=== PATIENT | male | born 1935 | race Caucasian/White ===

== ENCOUNTER → 2017-01-29 | Outpatient (REF) | payer MEDICARE, BC ==
[~2017-01-29] MED LIST: /WARF5TA OR; ACET65TA OR; IBUPROPHEN PO; IMMODIUM PO; KEFL500C OR; NASONEX INH; PERC5TAB8 OR
[2017-01-29 13:24] LABS: MEAN CORPUSCULAR HEMOGLOBIN 30.2 pg (27.0-33.0); RED CELL DISTRIBUTION WIDTH 14.4 % (11.5-14.5); WHITE BLOOD COUNT 5.5 K/mm3 (4.0-10.0)
[2017-01-29 13:53] LABS: ALBUMIN 3.8 GM/DL (3.2-5.2); ALBUMIN/GLOBULIN RATIO 1.41 (1.00-1.93); BILIRUBIN,TOTAL 0.6 MG/DL (0.2-1.0); CALCIUM LEVEL 8.3 MG/DL (8.8-10.2); CREATININE FOR GFR 1.24 MG/DL (0.70-1.30); GLOMERULAR FILTRATION RATE 59.9 (>42); POTASSIUM SERUM 4.3 MEQ/L (3.5-5.1); TOTAL PROTEIN 6.5 GM/DL (6.4-8.2)
== END ==
LOC: M SFHCCLAY 07:37
PROVIDERS: ATTEND Family Medicine
DX: Z00.00 Encounter for general adult medical examination without abnormal findings (principal); R53.82 Chronic fatigue, unspecified

== ENCOUNTER → 2017-12-25 | Outpatient (REF) | payer MEDICARE, BC ==
[2017-12-25 11:37] LABS: HEMATOCRIT 45.9 % (42.0-52.0); HEMOGLOBIN 15.3 g/dl (13.5-17.5); MEAN CORPUSCULAR HGB CONC 33.3 g/dl (32.0-36.5); MEAN CORPUSCULAR VOLUME 86.9 fl (80.0-96.0); PLATELET COUNT, AUTOMATED 194 10^3/uL (150-450); RED BLOOD COUNT 5.28 10^6/uL (4.30-6.10); RED CELL DISTRIBUTION WIDTH 13.5 % (11.5-14.5); WHITE BLOOD COUNT 5.3 10^3/uL (4.0-10.0)
[2017-12-25 12:16] LABS: ANION GAP 6 MEQ/L (8-16); AST/SGOT 17 U/L (7-37); BLOOD UREA NITROGEN 24 MG/DL (7-18); CALCIUM LEVEL 8.6 MG/DL (8.8-10.2); CARBON DIOXIDE LEVEL 28 MEQ/L (21-32); CHLORIDE LEVEL 108 MEQ/L (98-107); CREATININE FOR GFR 1.21 MG/DL (0.70-1.30); GLOMERULAR FILTRATION RATE > 60.0 (>35); GLUCOSE, FASTING 94 MG/DL (70-100); POTASSIUM SERUM 4.2 MEQ/L (3.5-5.1); SODIUM LEVEL 142 MEQ/L (136-145)
[2017-12-25 12:17] LABS: ALBUMIN/GLOBULIN RATIO 1.38 (1.00-1.93); ALKALINE PHOSPHATASE 74 U/L (45-117); ALT/SGPT 23 U/L (12-78); BILIRUBIN,TOTAL 0.6 MG/DL (0.2-1.0); TOTAL PROTEIN 6.9 GM/DL (6.4-8.2)
== END ==
LOC: M SFHCCLAY 07:49
DX: K58.0 Irritable bowel syndrome with diarrhea (principal); N52.9 Male erectile dysfunction, unspecified; Z98.890 Other specified postprocedural states; Z79.899 Other long term (current) drug therapy
CPT/HCPCS: 84443

== ENCOUNTER → 2018-05-14 | Outpatient (REF) | payer MEDICARE, BC ==
[2018-05-14 12:06] LABS: APPEARANCE, URINE CLEAR (CLEAR); BACTERIA, URINE AUTO NEGATIVE (NEGATIVE); BILIRUBIN, URINE AUTO NEGATIVE (NEGATIVE); BLOOD, URINE BLOOD NEGATIVE (NEGATIVE); COLOR, URINE YELLOW (YELLOW); GLUCOSE, URINE (UA) AUTO NEGATIVE (NEGATIVE); KETONE, URINE AUTO NEGATIVE (NEGATIVE); LEUKOCYTE ESTERASE, URINE AUTO NEGATIVE (NEGATIVE); MUCUS, URINE SMALL (NEGATIVE); NITRITE, URINE AUTO NEGATIVE (NEGATIVE); PROTEIN, URINE AUTO NEGATIVE (NEGATIVE); RBC, URINE AUTO 1 /HPF (0-3); SQUAMOUS EPITHELIAL CELL UR AU 0 /HPF (0-6); UROBILINOGEN, URINE AUTO 0.2 mg/dL (0.0-2.0); WBC, URINE AUTO 0 /HPF (0-3)
== END ==
LOC: M SMT 11:29
DX: R35.0 Frequency of micturition (principal); N50.89 Other specified disorders of the male genital organs
CPT/HCPCS: 81001

== ENCOUNTER → 2018-07-09 | Outpatient (REF) | payer MEDICARE, BC ==
[2018-07-09 16:41] LABS: BASO % 0.3 % (0.0-1.0); EOS # 0.1 10^3/uL (0.0-0.50); EOS % 0.6 % (0.0-3.0); HEMATOCRIT 45.9 % (42.0-52.0); HEMOGLOBIN 15.6 g/dl (13.5-17.5); IMMATURE GRANULOCYTE % 0.4 % (0-3.0); LYMPH % 9.4 % (24.0-44.0); MEAN CORPUSCULAR HEMOGLOBIN 30.2 pg (27.0-33.0); MEAN CORPUSCULAR VOLUME 88.8 fl (80.0-96.0); MONO # 0.9 10^3/uL (0.0-0.8); MONO % 8.2 % (0.0-5.0); NEUTROPHILS # 8.9 10^3/uL (1.8-7.7); NEUTROPHILS % 81.1 % (36.0-66.0); PLATELET COUNT, AUTOMATED 207 10^3/uL (150-450); RED BLOOD COUNT 5.17 10^6/uL (4.30-6.10); RED CELL DISTRIBUTION WIDTH 12.8 % (11.5-14.5); WHITE BLOOD COUNT 10.9 10^3/uL (4.0-10.0)
[2018-07-09 17:23] LABS: ANION GAP 10 MEQ/L (8-16); BLOOD UREA NITROGEN 25 MG/DL (7-18); CALCIUM LEVEL 8.8 MG/DL (8.8-10.2); CARBON DIOXIDE LEVEL 24 MEQ/L (21-32); CHLORIDE LEVEL 105 MEQ/L (98-107); CREATININE FOR GFR 1.24 MG/DL (0.70-1.30); FREE T4 0.93 NG/DL (0.76-1.46); GLOMERULAR FILTRATION RATE 59.7 (>35); GLUCOSE, FASTING 153 MG/DL (70-100); POTASSIUM SERUM 4.5 MEQ/L (3.5-5.1); SODIUM LEVEL 139 MEQ/L (136-145)
== END ==
LOC: M SFHCCLAY 13:35
DX: R30.0 Dysuria (principal); R79.89 Other specified abnormal findings of blood chemistry; R10.32 Left lower quadrant pain
CPT/HCPCS: 84443

== ENCOUNTER → 2019-01-13 | Outpatient (REF) | payer MEDICARE, BC ==
[~2019-01-13] MED LIST changes: -/WARF5TA OR; +COUM1TAB17 OR
[2019-01-14 11:36] LABS: FREE T4 0.87 NG/DL (0.76-1.46); THYROID STIMULATING HORMONE 3.75 uIU/ML (0.358-3.740)
[2019-01-14 11:37] LABS: FOLATE 11.3 NG/ML (>5.4)
[2019-01-14 11:41] LABS: HEMOGLOBIN A1c 5.8 %
== END ==
LOC: M SFHCCLAY 13:59
PROVIDERS: ATTEND Family Medicine
DX: G62.9 Polyneuropathy, unspecified (principal); R53.82 Chronic fatigue, unspecified
CPT/HCPCS: 82607; 82746; 83036; 84439; 84443; G0463

== ENCOUNTER → 2019-01-17 | Outpatient (CLI) | payer MEDICARE, BC ==
--- NOTE | 2019-01-17 16:29 | REP ---
Scrotal sonography: History: Epididymitis. Scrotal cyst. Comparison study December 19, 2005 showed a small left-sided varicocele and a small right hydrocele. 6 mm epididymal cysts were seen. Today's sonographic findings: High-resolution bilateral scrotal sonography shows no evidence of intratesticular mass lesion on either side. Right testis measures 4.9 x 2.4 x 2.9 cm. Left testicular dimensions are 4.1 x 1.9 x 3.3 cm. There are small bilateral cysts in the head of each epididymis, two on the left, and one on the right. The largest of these on each side measures 6 mm in greatest diameter. There are small bilateral varicoceles. The palpable area pointed out by the patient corresponds to the 6 mm left epididymal head cyst. Doppler flow is normal in both testes. Resistive indices are measured at 0.56 on the right and 0.50 on the left. Impression: Bilateral epididymal cysts. Small bilateral varicoceles. No intratesticular lesion is seen on either side. Normal Doppler flow to both testes. Electronically Signed by Yovani Sena MD 01/17/2019 07:35 P
== END ==
LOC: M RAD 12:42
PROVIDERS: ATTEND Family Medicine
DX: N50.89 Other specified disorders of the male genital organs (principal); N50.3 Cyst of epididymis

== ENCOUNTER → 2019-04-28 | Outpatient (REF) | payer MEDICARE, BC | LOC: M SMT 17:27 | PROVIDERS: ATTEND Urology | DX: R35.0 Frequency of micturition (principal) ==

== ENCOUNTER → 2019-06-09 | Outpatient (REF) | payer MEDICARE, BC ==
[2019-06-09 11:35] LABS: HEMATOCRIT 44.7 % (42.0-52.0); HEMOGLOBIN 14.9 g/dl (13.5-17.5); MEAN CORPUSCULAR HEMOGLOBIN 30.5 pg (27.0-33.0); MEAN CORPUSCULAR HGB CONC 33.3 g/dl (32.0-36.5); MEAN CORPUSCULAR VOLUME 91.6 fl (80.0-96.0); PLATELET COUNT, AUTOMATED 184 10^3/uL (150-450); RED BLOOD COUNT 4.88 10^6/uL (4.30-6.10); WHITE BLOOD COUNT 5.1 10^3/uL (4.0-10.0)
[2019-06-09 12:17] LABS: CALCIUM LEVEL 8.2 MG/DL (8.8-10.2); CREATININE FOR GFR 1.3 MG/DL (0.70-1.30); FREE T4 0.93 NG/DL (0.76-1.46); GLOMERULAR FILTRATION RATE 56.4 (>35); POTASSIUM SERUM 4.3 MEQ/L (3.5-5.1); THYROID STIMULATING HORMONE 3.88 uIU/ML (0.358-3.740)
== END ==
LOC: M SFHCCLAY 09:18
PROVIDERS: ATTEND Family Medicine
DX: K58.0 Irritable bowel syndrome with diarrhea (principal); M19.90 Unspecified osteoarthritis, unspecified site; I34.0 Nonrheumatic mitral (valve) insufficiency; N40.1 Benign prostatic hyperplasia with lower urinary tract symptoms; R79.89 Other specified abnormal findings of blood chemistry; Z79.899 Other long term (current) drug therapy; Z79.01 Long term (current) use of anticoagulants
CPT/HCPCS: 80048; 84439; 84443; 85027; 90682; 99497; G0008; G0463

== ENCOUNTER → 2019-09-27 | Outpatient (REF) | payer MEDICARE, BC ==
[2019-09-27 17:31] LABS: FREE T4 0.87 NG/DL (0.76-1.46); THYROID STIMULATING HORMONE 3.33 uIU/ML (0.358-3.740)
== END ==
LOC: M SFHCCLAY 11:21
PROVIDERS: ATTEND Family Medicine
DX: R79.89 Other specified abnormal findings of blood chemistry (principal); Z79.899 Other long term (current) drug therapy
CPT/HCPCS: 84439; 84443; G0463

== ENCOUNTER → 2020-10-08 | Outpatient (REF) | payer MEDICARE, BC ==
[2020-10-08 12:26] LABS: HEMATOCRIT 48.1 % (42.0-52.0); HEMOGLOBIN 15.8 g/dl (13.5-17.5); MEAN CORPUSCULAR HEMOGLOBIN 30.3 pg (27.0-33.0); MEAN CORPUSCULAR HGB CONC 32.8 g/dl (32.0-36.5); MEAN CORPUSCULAR VOLUME 92.1 fl (80.0-96.0); PLATELET COUNT, AUTOMATED 154 10^3/uL (150-450); RED BLOOD COUNT 5.22 10^6/uL (4.30-6.10); WHITE BLOOD COUNT 5.5 10^3/uL (4.0-10.0)
[2020-10-08 13:12] LABS: ALBUMIN 4.1 GM/DL (3.2-5.2); BILIRUBIN,TOTAL 0.7 MG/DL (0.2-1.0); CHOLESTEROL RISK RATIO 4.318 (<5); CREATININE FOR GFR 1.32 MG/DL (0.70-1.30); GLOMERULAR FILTRATION RATE 55.3 (>35); POTASSIUM SERUM 4.2 MEQ/L (3.5-5.1); TOTAL PROTEIN 6.8 GM/DL (6.4-8.2)
== END ==
LOC: M LABDRAWC 11:34
PROVIDERS: ATTEND Nurse Practitioner Family
DX: I34.0 Nonrheumatic mitral (valve) insufficiency (principal); I05.9 Rheumatic mitral valve disease, unspecified; I49.5 Sick sinus syndrome; N40.0 Benign prostatic hyperplasia without lower urinary tract symptoms; R06.02 Shortness of breath; R07.89 Other chest pain

== ENCOUNTER → 2021-02-13 | Outpatient (REF) | payer MEDICARE, BC ==
[2021-02-13 18:28] LABS: APPEARANCE, URINE CLEAR (CLEAR); BACTERIA, URINE AUTO NEGATIVE (NEGATIVE); BILIRUBIN, URINE AUTO NEGATIVE (NEGATIVE); BLOOD, URINE BLOOD NEGATIVE (NEGATIVE); COLOR, URINE YELLOW (YELLOW); GLUCOSE, URINE (UA) AUTO NEGATIVE (NEGATIVE); KETONE, URINE AUTO NEGATIVE (NEGATIVE); LEUKOCYTE ESTERASE, URINE AUTO NEGATIVE (NEGATIVE); MUCUS, URINE SMALL (NEGATIVE); NITRITE, URINE AUTO NEGATIVE (NEGATIVE); PROTEIN, URINE AUTO NEGATIVE (NEGATIVE); RBC, URINE AUTO 0 /HPF (0-3); SPECIFIC GRAVITY URINE AUTO 1.014 (1.002-1.035); SQUAMOUS EPITHELIAL CELL UR AU 0 /HPF (0-6); UROBILINOGEN, URINE AUTO 0.2 mg/dL (0.0-2.0); WBC, URINE AUTO 0 /HPF (0-3)
== END ==
LOC: M SMT 17:21
PROVIDERS: ATTEND Nurse Practitioner Women's Health
DX: N50.819 Testicular pain, unspecified (principal)
CPT/HCPCS: 81001; 87086; G0463

== ENCOUNTER → 2021-04-09 | Outpatient (CLI) | payer MEDICARE, BC ==
[~2021-04-09] MED LIST changes: +ISOVUE-300 61% 50ML VIAL As Ordered ONE; +LIDOCAINE 1% MDV 20ML VIAL As Ordered ONE; +methylPREDNISolone SUSP 40MG/ML 1ML VIAL (DEPO MEDROL) As Ordered ONE
== END ==
LOC: M RADPRO 10:55
PROVIDERS: ATTEND Physician Assistant
DX: M19.011 Primary osteoarthritis, right shoulder (principal)
CPT/HCPCS: 20610; 77002; J1030; Q9967

== ENCOUNTER → 2021-06-26 | Outpatient (CLI) | payer MEDICARE, BC ==
[~2021-06-26] MED LIST changes: -ISOVUE-300 61% 50ML VIAL As Ordered ONE; -LIDOCAINE 1% MDV 20ML VIAL As Ordered ONE; -methylPREDNISolone SUSP 40MG/ML 1ML VIAL (DEPO MEDROL) As Ordered ONE
--- NOTE | 2021-06-26 10:59 | REP ---
INDICATION: LT KNEE PAIN. COMPARISON: 05/07/2011, 02/23/2008. TECHNIQUE: AP bilateral knees, lateral and sunrise views left knee. FINDINGS: There is no acute fracture or dislocation. Right total knee prosthesis appears to be in good position with no abnormal lucency at the interface with adjacent tulalip bone. Severe medial joint space narrowing is noted on the left with associated subchondral sclerosis and mild spurring. There is mild diffuse spurring of the patella. There is mild patellofemoral joint space narrowing laterally with subchondral sclerosis. There is a mild to moderate suprapatellar joint effusion as well. IMPRESSION: Right total knee prosthesis appears grossly unremarkable on a single AP view. 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 <Electronically signed by Umang Benson > 06/26/21 [id number]
== END ==
LOC: M SOG 08:04
PROVIDERS: ATTEND Orthopaedic Surgery Adult Reconstructive Orthopaedic Surgery
DX: M25.562 Pain in left knee (principal)

== ENCOUNTER → 2021-11-06 | Outpatient (REF) | payer MEDICARE, BC ==
[2021-11-06 18:55] LABS: BILIRUBIN,TOTAL 0.6 MG/DL (0.2-1.0); CHOLESTEROL RISK RATIO 4.342 (<5); CREATININE FOR GFR 1.36 MG/DL (0.70-1.30); GLOMERULAR FILTRATION RATE 53.3 (>35); POTASSIUM SERUM 4.8 MEQ/L (3.5-5.1); TOTAL PROTEIN 6.8 GM/DL (6.4-8.2)
[2021-11-06 19:01] LABS: HEMOGLOBIN 15.1 g/dl (13.5-17.5); MEAN CORPUSCULAR HEMOGLOBIN 29.4 pg (27.0-33.0); MEAN CORPUSCULAR HGB CONC 32.8 g/dl (32.0-36.5); MEAN CORPUSCULAR VOLUME 89.7 fl (80.0-96.0); PLATELET COUNT, AUTOMATED 181 10^3/uL (150-450); RED BLOOD COUNT 5.13 10^6/uL (4.30-6.10); WHITE BLOOD COUNT 6.7 10^3/uL (4.0-10.0)
== END ==
LOC: M SFHCCLAY 10:45
PROVIDERS: ATTEND Family Medicine
DX: J30.2 Other seasonal allergic rhinitis (principal); I05.9 Rheumatic mitral valve disease, unspecified; E78.00 Pure hypercholesterolemia, unspecified

== ENCOUNTER → 2021-11-18 | Outpatient (CLI) | payer MEDICARE, BC | LOC: M RAD 10:50 | PROVIDERS: ATTEND Family Medicine | DX: N50.3 Cyst of epididymis (principal); N43.3 Hydrocele, unspecified ==

== ENCOUNTER → 2022-06-11 | Outpatient (REF) | payer MEDICARE, BC ==
[2022-06-11 12:00] LABS: HEMATOCRIT 45.4 % (42.0-52.0); HEMOGLOBIN 14.7 g/dl (13.5-17.5); MEAN CORPUSCULAR HEMOGLOBIN 29.3 pg (27.0-33.0); MEAN CORPUSCULAR HGB CONC 32.4 g/dl (32.0-36.5); MEAN CORPUSCULAR VOLUME 90.4 fl (80.0-96.0); PLATELET COUNT, AUTOMATED 188 10^3/uL (150-450); RED BLOOD COUNT 5.02 10^6/uL (4.30-6.10); WHITE BLOOD COUNT 6.8 10^3/uL (4.0-10.0)
[2022-06-11 12:49] LABS: CALCIUM LEVEL 8.9 MG/DL (8.8-10.2); CREATININE FOR GFR 1.46 MG/DL (0.70-1.30); POTASSIUM SERUM 4.3 MEQ/L (3.5-5.1)
== END ==
LOC: M SFHCCLAY 08:01
PROVIDERS: ATTEND Family Medicine
DX: I50.32 Chronic diastolic (congestive) heart failure (principal)

== ENCOUNTER → 2022-07-15 | Outpatient (REF) | payer MEDICARE, BC ==
[2022-07-15 17:55] LABS: BASO % 0.4 % (0.0-1.0); EOS # 0.1 10^3/uL (0.0-0.5); EOS % 1.6 % (0.0-3.0); HEMATOCRIT 42.8 % (42.0-52.0); HEMOGLOBIN 13.9 g/dl (13.5-17.5); LYMPH # 1.1 10^3/uL (1.5-5.0); LYMPH % 15.1 % (24.0-44.0); MEAN CORPUSCULAR HEMOGLOBIN 28.7 pg (27.0-33.0); MEAN CORPUSCULAR HGB CONC 32.5 g/dl (32.0-36.5); MEAN CORPUSCULAR VOLUME 88.4 fl (80.0-96.0); MONO # 0.8 10^3/uL (0.0-0.8); MONO % 11.3 % (2.0-8.0); NEUTROPHILS % 71.3 % (36.0-66.0); PLATELET COUNT, AUTOMATED 199 10^3/uL (150-450); RED BLOOD COUNT 4.84 10^6/uL (4.30-6.10)
[2022-07-15 18:18] LABS: ALBUMIN 3.6 GM/DL (3.2-5.2); BILIRUBIN,TOTAL 0.5 MG/DL (0.2-1.0); CALCIUM LEVEL 9.1 MG/DL (8.8-10.2); CREATININE FOR GFR 1.42 MG/DL (0.70-1.30); FREE T4 0.9 NG/DL (0.76-1.46); GLOMERULAR FILTRATION RATE 50.6 (>35); POTASSIUM SERUM 4.4 MEQ/L (3.5-5.1); THYROID STIMULATING HORMONE 3.23 uIU/ML (0.358-3.740); TOTAL PROTEIN 6.8 GM/DL (6.4-8.2)
[2022-07-15 18:56] LABS: FOLATE 10.1 NG/ML (>5.4)
[2022-07-15 20:28] LABS: HEMOGLOBIN A1c 5.7 %
== END ==
LOC: M SFHCCLAY 09:24
PROVIDERS: ATTEND Family Medicine
DX: G62.9 Polyneuropathy, unspecified (principal); L57.0 Actinic keratosis

== ENCOUNTER → 2022-10-03 | Outpatient (REF) | payer MEDICARE, BC ==
[2022-10-03 17:43] LABS: HEMOGLOBIN 13.9 g/dl (13.5-17.5); MEAN CORPUSCULAR HGB CONC 32.3 g/dl (32.0-36.5); MEAN CORPUSCULAR VOLUME 86.7 fl (80.0-96.0); PLATELET COUNT, AUTOMATED 195 10^3/uL (150-450); RED BLOOD COUNT 4.96 10^6/uL (4.30-6.10)
[2022-10-03 17:48] LABS: CALCIUM LEVEL 8.5 MG/DL (8.3-10.6); CREATININE FOR GFR 1.34 MG/DL (0.70-1.30); GLOMERULAR FILTRATION RATE 54.1 (>35); POTASSIUM SERUM 4.5 MMOL/L (3.5-5.1)
== END ==
LOC: M LABDRAWC 16:57
PROVIDERS: ATTEND Nurse Practitioner Family
DX: R06.02 Shortness of breath (principal)

== ENCOUNTER → 2022-12-19 | Outpatient (REF) | payer MEDICARE, BC ==
[2022-12-19 11:59] LABS: APPEARANCE, URINE CLEAR (CLEAR); BACTERIA, URINE AUTO NEGATIVE (NEGATIVE); BILIRUBIN, URINE AUTO NEGATIVE (NEGATIVE); BLOOD, URINE BLOOD 2+ (NEGATIVE); COLOR, URINE YELLOW (YELLOW); GLUCOSE, URINE (UA) AUTO NEGATIVE (NEGATIVE); KETONE, URINE AUTO NEGATIVE (NEGATIVE); LEUKOCYTE ESTERASE, URINE AUTO NEGATIVE (NEGATIVE); MUCUS, URINE SMALL (NEGATIVE); NITRITE, URINE AUTO NEGATIVE (NEGATIVE); PROTEIN, URINE AUTO NEGATIVE (NEGATIVE); RBC, URINE AUTO 1 /HPF (0-3); SPECIFIC GRAVITY URINE AUTO 1.009 (1.002-1.035); SQUAMOUS EPITHELIAL CELL UR AU 0 /HPF (0-6); UROBILINOGEN, URINE AUTO 0.2 mg/dL (0.0-2.0); WBC, URINE AUTO 1 /HPF (0-3)
== END ==
LOC: M SFHCCLAY 08:06
PROVIDERS: ATTEND Family Medicine
DX: R35.0 Frequency of micturition (principal)

== ENCOUNTER → 2023-06-16 | Outpatient (REF) | payer MEDICARE, BC ==
[2023-06-16 18:28] LABS: BASO % 0.5 % (0.0-1.0); EOS # 0.1 10^3/uL (0.0-0.5); EOS % 1.7 % (0.0-3.0); HEMATOCRIT 44.5 % (42.0-52.0); HEMOGLOBIN 14.5 g/dl (13.5-17.5); LYMPH # 1.1 10^3/uL (1.5-5.0); LYMPH % 17.6 % (24.0-44.0); MEAN CORPUSCULAR HEMOGLOBIN 28.9 pg (27.0-33.0); MEAN CORPUSCULAR HGB CONC 32.6 g/dl (32.0-36.5); MEAN CORPUSCULAR VOLUME 88.6 fl (80.0-96.0); MONO # 0.6 10^3/uL (0.0-0.8); MONO % 9.8 % (2.0-8.0); NEUTROPHILS # 4.4 10^3/uL (1.5-8.5); NEUTROPHILS % 69.9 % (36.0-66.0); PLATELET COUNT, AUTOMATED 174 10^3/uL (150-450); RED BLOOD COUNT 5.02 10^6/uL (4.30-6.10); WHITE BLOOD COUNT 6.3 10^3/uL (4.0-10.0)
[2023-06-16 18:45] LABS: ALBUMIN 3.9 G/DL (3.2-5.2); BILIRUBIN,TOTAL 0.6 MG/DL (0.3-1.2); CALCIUM LEVEL 8.9 MG/DL (8.3-10.6); CHOLESTEROL RISK RATIO 3.81 (<5); CREATININE FOR GFR 1.27 MG/DL (0.70-1.30); GLOMERULAR FILTRATION RATE 57.4 (>35); HDL CHOLESTEROL 37.7 MG/DL (>40); LDL CHOLESTEROL 84.7 MG/DL (<100); NON-HDL-C 106.3 MG/DL; POTASSIUM SERUM 4.8 MMOL/L (3.5-5.1); TOTAL PROTEIN 6.6 G/DL (5.7-8.2)
== END ==
LOC: M SFHCCLAY 10:36
PROVIDERS: ATTEND Family Medicine
DX: Z23 Encounter for immunization (principal); I50.32 Chronic diastolic (congestive) heart failure; J30.2 Other seasonal allergic rhinitis; Z98.890 Other specified postprocedural states

== ENCOUNTER → 2024-04-26 | Outpatient (REF) | payer MEDICARE, BC ==
[2024-04-26 17:22] LABS: BASO % 0.5 % (0.0-1.0); EOS # 0.2 10^3/uL (0.0-0.5); EOS % 2.8 % (0.0-3.0); HEMATOCRIT 45.3 % (42.0-52.0); HEMOGLOBIN 14.9 g/dl (13.5-17.5); LYMPH # 1.3 10^3/uL (1.5-5.0); MEAN CORPUSCULAR HGB CONC 32.9 g/dl (32.0-36.5); MEAN CORPUSCULAR VOLUME 88.1 fl (80.0-96.0); MONO # 0.9 10^3/uL (0.0-0.8); MONO % 11.9 % (2.0-8.0); NEUTROPHILS # 5.1 10^3/uL (1.5-8.5); NEUTROPHILS % 67.4 % (36.0-66.0); PLATELET COUNT, AUTOMATED 173 10^3/uL (150-450); RED BLOOD COUNT 5.14 10^6/uL (4.30-6.10); WHITE BLOOD COUNT 7.5 10^3/uL (4.0-10.0)
[2024-04-26 17:50] LABS: FREE T4 1.15 NG/DL (0.89-1.76); THYROID STIMULATING HORMONE 5.22 uIU/ML (0.55-4.78)
[2024-04-26 17:53] LABS: BILIRUBIN,TOTAL 0.7 MG/DL (0.3-1.2); CALCIUM LEVEL 8.9 MG/DL (8.3-10.6); CREATININE FOR GFR 1.39 MG/DL (0.70-1.30); GLOMERULAR FILTRATION RATE 51.6 (>35); POTASSIUM SERUM 5.1 MMOL/L (3.5-5.1); TOTAL PROTEIN 6.9 G/DL (5.7-8.2)
== END ==
LOC: M SFHCCLAY 13:57
PROVIDERS: ATTEND Family Medicine
DX: I50.32 Chronic diastolic (congestive) heart failure (principal); M15.9 Polyosteoarthritis, unspecified; Z98.890 Other specified postprocedural states

== ENCOUNTER → 2024-10-28 | Outpatient (REF) | payer MEDICARE, BC ==
[2024-10-28 13:24] LABS: ALBUMIN 3.8 G/DL (3.2-5.2); BILIRUBIN,TOTAL 0.7 MG/DL (0.3-1.2); CALCIUM LEVEL 8.7 MG/DL (8.3-10.6); CHOLESTEROL RISK RATIO 4.44 (<5); CREATININE FOR GFR 1.42 MG/DL (0.70-1.30); GLOMERULAR FILTRATION RATE 50.3 (>35); HDL CHOLESTEROL 35.3 MG/DL (>40); LDL CHOLESTEROL 100.3 MG/DL (<100); NON-HDL-C 121.7 MG/DL; POTASSIUM SERUM 4.4 MMOL/L (3.5-5.1); TOTAL PROTEIN 6.6 G/DL (5.7-8.2)
[2024-10-28 13:25] LABS: FREE T4 1.23 NG/DL (0.89-1.76)
[2024-10-28 13:26] LABS: THYROID STIMULATING HORMONE 7.638 uIU/ML (0.55-4.78)
== END ==
LOC: M SFHCCLAY 07:09
PROVIDERS: ATTEND Physician Assistant
DX: J30.9 Allergic rhinitis, unspecified (principal); M15.9 Polyosteoarthritis, unspecified; I50.32 Chronic diastolic (congestive) heart failure; Z98.890 Other specified postprocedural states; R79.89 Other specified abnormal findings of blood chemistry

== ENCOUNTER → 2025-03-31 | Outpatient (REF) | payer MEDICARE, BC ==
[2025-03-31 17:14] LABS: ALT/SGPT 21.0 U/L (7.0-40); AST/SGOT 21.0 U/L (<34); CALCIUM LEVEL 8.4 MG/DL (8.3-10.6); CARBON DIOXIDE LEVEL 25.0 MMOL/L (20-31); CHLORIDE LEVEL 103.0 MMOL/L (98-107); CREATININE FOR GFR 1.5 MG/DL (0.70-1.30); GLOMERULAR FILTRATION RATE 44.8 (>35); POTASSIUM SERUM 4.4 MMOL/L (3.5-5.1); SODIUM LEVEL 139.0 MMOL/L (136-145)
[2025-03-31 17:17] LABS: FREE T4 0.97 NG/DL (0.89-1.76)
[2025-03-31 17:34] LABS: ESTIMATED AVERAGE GLUCOSE 120.0 MG/DL (60-110)
== END ==
LOC: M SFHCCLAY 13:12
PROVIDERS: ATTEND Physician Assistant
DX: J30.9 Allergic rhinitis, unspecified (principal); M15.9 Polyosteoarthritis, unspecified; I50.32 Chronic diastolic (congestive) heart failure; Z98.890 Other specified postprocedural states; R79.89 Other specified abnormal findings of blood chemistry; N40.1 Benign prostatic hyperplasia with lower urinary tract symptoms; I34.0 Nonrheumatic mitral (valve) insufficiency; L98.9 Disorder of the skin and subcutaneous tissue, unspecified